=== PATIENT | male | born 1975 ===

== ENCOUNTER 2019-01-20 18:00 | Inpatient (IN) ==
[2019-01-20] MEDS ORDERED: DEXTROSE 50% 25 GM/50 ML VIAL IV PRN (23:23)
[2019-01-20] MEDS ORDERED: ACETAMINOPHEN 325 MG TABLET PO PRN (23:23)
[2019-01-20] MEDS ORDERED: DOCUSATE SODIUM 100 MG CAPSULE PO PRN (23:23)
[2019-01-20] MEDS ORDERED: ONDANSETRON 4 MG/2 ML VIAL IV PRN (23:23)
[2019-01-20] MEDS ORDERED: GLUCAGON 1 MG VIAL IM PRN (23:23)
[2019-01-20] MEDS ORDERED: MAGNESIUM SULF RIDER 4 GM in PREMIX 1 EACH IV PRN (23:23)
[2019-01-20] MEDS ORDERED: MAGNESIUM SULF RIDER 2 GM in PREMIX 1 EACH IV PRN (23:23)
[2019-01-21] MEDS: INSULIN LISPRO 100 UNIT/ML SUBCUT SCH ×5 (01:12→21:14)
[2019-01-21 05:32] LABS: Basophils % 0.3 % (0.0-0.8); Eosinophils # 0.6 10*3/uL (0.0-0.87); Eosinophils % 9.1 % (0.00-10.9); Hematocrit 20.6 VOL% (42.0-52.0); Hemoglobin 6.8 GM/DL (14.0-18.0); Immature Granulocytes % 0.6 %; Immature Granulocytes Absolute 0.04 #; Lymphocytes # 1.4 10*3/uL (1.4-4.0); Lymphocytes % 21.3 % (21.2-54.2); Mean Corpuscular Volume 93.2 FL (87-102); Mean Platelet Volume 11.6 FL (9.6-12.0); Monocytes % 8.1 % (1.7-12.7); Neutrophils % 60.6 % (38.7-73.9); Platelet Count 137 T/CUMM (130-400); Red Blood Count 2.21 MC/CUMM (3.8-5.5); Red Cell Distribution Width 14.9 % (9.3-17.3); White Blood Count 6.6 T/CUMM (4-12)
[2019-01-21 06:16] LABS: Bilirubin,Total 0.4 MG/DL (0.2-1.0); Calcium 7.3 MG/DL (8.5-10.1); Osmolality,Calculated 298.4 MOS/KG (273-304); Risk Ratio 3.28; Thyroid Stimulating Hormone 5.59 uIU/ml (0.358-3.74); Total Protein 5.4 G/DL (6.4-8.3); VLDL CHOLESTEROL 19.4 MG/DL
[2019-01-21 06:17] LABS: Hematocrit 21.2 VOL% (42.0-52.0); Hemoglobin 7.1 GM/DL (14.0-18.0)
[2019-01-21] MEDS: POTASSIUM CHLORIDE 20 MEQ TABLET PO PRN ×5 (06:50→14:54)
[2019-01-21 09:00] LABS: CKMB % 1.4 %
[2019-01-21 09:01] LABS: Troponin I 0.329 NG/ML (0.00-0.045)
[2019-01-21] MEDS: ASPIRIN EC 325 MG TABLET PO SCH (09:18)
[2019-01-21] MEDS: CLOPIDOGREL 75 MG TABLET PO SCH (09:18)
[2019-01-21] MEDS: LOSARTAN 50 MG TABLET PO SCH (09:18)
[2019-01-21] MEDS: ATORVASTATIN 40 MG TABLET PO SCH (09:18)
[2019-01-21] MEDS: POTASSIUM CHLORIDE 10 MEQ TABLET PO SCH (09:18)
[2019-01-21] MEDS: FUROSEMIDE 40 MG/4 ML VIAL IV SCH ×2 (09:18→17:11)
[2019-01-21] MEDS ORDERED: SODIUM CHLORIDE 0.9% 1,000 ML IV PRN (10:06)
[2019-01-21] MEDS ORDERED: FUROSEMIDE 40 MG/4 ML VIAL IV ONE (10:08)
[2019-01-21 12:08] LABS: CKMB % 1.3 %
[2019-01-21 12:10] LABS: Troponin I 0.397 NG/ML (0.00-0.045)
[2019-01-21 15:53] LABS: CKMB % 1.3 %
[2019-01-21 15:55] LABS: Troponin I 0.441 NG/ML (0.00-0.045)
[2019-01-21 15:58] LABS: % Iron Saturation 23.6 % (18-50)
[2019-01-21] MEDS ORDERED: POTASSIUM CHLORIDE 10 MEQ TABLET PO ONE (16:24)
[2019-01-21 18:04] LABS: Apearance,Urine CLEAR (Clear); Bacteria,Urine Moderate /HPF (Few); Bilirubin,Urine Negative (Negative); Blood, Urine Small mg/dL (Negative); Glucose,Urine (UA) 50 mg/dL (Negative); Hyaline Casts,Urine 3 /LPF (0-3); Ketones,Urine Negative (Negative); Mucus,Urine Occasional /LPF (Occasional); Nitrite,Urine Negative (Negative); Protein,Urine >=500 MG/DL; RBC,Urine 2 /HPF (0-4); Squamous Epithelial Cell,Urine Occasional /HPF (0-10); Urine Color Yellow (Yellow); Urine Urobilinogen < 2.0 EU/DL (0.2-1.0); WBC,Urine 4 /HPF (0-6)
[2019-01-21 18:56] LABS: Hematocrit 27.7 VOL% (42.0-52.0); Hemoglobin 9.2 GM/DL (14.0-18.0)
[2019-01-22 05:13] LABS: Basophils % 0.4 % (0.0-0.8); Eosinophils # 0.6 10*3/uL (0.0-0.87); Eosinophils % 8.3 % (0.00-10.9); Hematocrit 24.5 VOL% (42.0-52.0); Hemoglobin 8.1 GM/DL (14.0-18.0); Immature Granulocytes % 0.4 %; Immature Granulocytes Absolute 0.03 #; Lymphocytes # 1.4 10*3/uL (1.4-4.0); Lymphocytes % 19.8 % (21.2-54.2); Mean Corpuscular HGB Conc 33.1 GM/DL (32-36); Mean Corpuscular Volume 94.2 FL (87-102); Mean Platelet Volume 10.8 FL (9.6-12.0); Neutrophils % 63.1 % (38.7-73.9); Platelet Count 146 T/CUMM (130-400); Red Cell Distribution Width 14.8 % (9.3-17.3); White Blood Count 6.9 T/CUMM (4-12)
[2019-01-22 05:26] LABS: Calcium 7.4 MG/DL (8.5-10.1); Osmolality,Calculated 299.6 MOS/KG (273-304)
[2019-01-22] MEDS: POTASSIUM CHLORIDE 20 MEQ TABLET PO PRN (06:29)
[2019-01-22] MEDS: INSULIN LISPRO 100 UNIT/ML SUBCUT SCH ×4 (08:28→22:02)
[2019-01-22] MEDS: LOSARTAN 50 MG TABLET PO SCH (09:27)
[2019-01-22] MEDS: ATORVASTATIN 40 MG TABLET PO SCH (09:27)
[2019-01-22] MEDS: POTASSIUM CHLORIDE 10 MEQ TABLET PO SCH (09:27)
[2019-01-22] MEDS: ASPIRIN EC 325 MG TABLET PO SCH (09:27)
[2019-01-22] MEDS: CLOPIDOGREL 75 MG TABLET PO SCH (09:27)
[2019-01-22] MEDS: FUROSEMIDE 40 MG/4 ML VIAL IV SCH (09:44)
[2019-01-22] MEDS: FUROSEMIDE 100 MG/10 ML VIAL IV SCH ×2 (10:35→16:31)
[2019-01-22] MEDS: CARVEDILOL 6.25 MG TABLET PO SCH ×2 (10:36→16:32)
[2019-01-23 04:56] LABS: Basophils % 0.6 % (0.0-0.8); Eosinophils # 0.7 10*3/uL (0.0-0.87); Eosinophils % 9.8 % (0.00-10.9); Hematocrit 28.5 VOL% (42.0-52.0); Hemoglobin 9.3 GM/DL (14.0-18.0); Immature Granulocytes % 0.4 %; Immature Granulocytes Absolute 0.03 #; Lymphocytes # 1.4 10*3/uL (1.4-4.0); Mean Corpuscular HGB Conc 32.6 GM/DL (32-36); Mean Corpuscular Volume 94.1 FL (87-102); Mean Platelet Volume 11.3 FL (9.6-12.0); Monocytes % 6.9 % (1.7-12.7); Neutrophils % 62.3 % (38.7-73.9); Platelet Count 158 T/CUMM (130-400); Red Blood Count 3.03 MC/CUMM (3.8-5.5); Red Cell Distribution Width 14.6 % (9.3-17.3); White Blood Count 7.1 T/CUMM (4-12)
[2019-01-23 05:19] LABS: Calcium 7.9 MG/DL (8.5-10.1); Osmolality,Calculated 298.7 MOS/KG (273-304)
[2019-01-23] MEDS: POTASSIUM CHLORIDE 20 MEQ TABLET PO PRN (06:41)
[2019-01-23] MEDS: FUROSEMIDE 100 MG/10 ML VIAL IV SCH (08:32)
[2019-01-23] MEDS: INSULIN LISPRO 100 UNIT/ML SUBCUT SCH ×2 (08:48→13:27)
[2019-01-23] MEDS: ATORVASTATIN 40 MG TABLET PO SCH (08:50)
[2019-01-23] MEDS: POTASSIUM CHLORIDE 10 MEQ TABLET PO SCH (08:50)
[2019-01-23] MEDS: CLOPIDOGREL 75 MG TABLET PO SCH (08:51)
[2019-01-23] MEDS: LOSARTAN 50 MG TABLET PO SCH (08:51)
[2019-01-23] MEDS: ASPIRIN EC 325 MG TABLET PO SCH (08:51)
[2019-01-23] MEDS: CARVEDILOL 6.25 MG TABLET PO SCH (08:51)
[2019-01-23 13:08] VITALS: BP 131/81
== END 2019-01-23 14:30 | disposition home or self-care (01) | DRG 291 ==
LOC: EDBD → SUATTDRO 20:57 → N.TELES 20:57 → INTOOBSV 20:57
PROVIDERS: ADMIT Internal Medicine; ATTEND Internal Medicine

== ENCOUNTER 2019-09-22 14:42 | Inpatient (IN) ==
[2019-09-22] MEDS ORDERED: hydrALAZINE 20 MG/1 ML VIAL IV PRN (19:01)
[2019-09-22] MEDS ORDERED: SODIUM CHLORIDE 0.9% 1,000 ML IV PRN ×2 (19:01→20:54)
[2019-09-22] MEDS ORDERED: ONDANSETRON 4 MG/2 ML VIAL IV PRN (19:01)
[2019-09-22] MEDS ORDERED: ZALEPLON 5 MG CAPSULE PO PRN (19:01)
[2019-09-22] MEDS ORDERED: GLUCAGON 1 MG VIAL IM PRN (19:01)
[2019-09-22] MEDS ORDERED: DEXTROSE 50% 25 GM/50 ML VIAL IV PRN (19:01)
[2019-09-22] MEDS ORDERED: DEXTROSE 10% 250 ML BAG IV PRN (19:01)
[2019-09-22] MEDS ORDERED: ACETAMINOPHEN 325 MG TABLET PO PRN (19:01)
[2019-09-22] MEDS ORDERED: INFLUENZA VIRUS VACCINE 0.5 ML SYRINGE IM ONE (19:14)
[2019-09-22] MEDS ORDERED: cloNIDine 0.1 MG TABLET PO PRN (19:17)
[2019-09-22 22:04] LABS: % Iron Saturation 22.4 % (18-50)
[2019-09-22] MEDS: SODIUM CHLORIDE 0.45% 1,000 ML IV SCH (22:24)
[2019-09-22] MEDS: FUROSEMIDE 40 MG/4 ML VIAL IV SCH (22:27)
[2019-09-22] MEDS: INSULIN REGULAR 100 UNIT/ML SUBCUT SCH (22:28)
[2019-09-22 23:02] LABS: Hepatitis B Surface Ag Quant < 0.10 Index; Hepatitis B Surface Ag Result Negative (Negative); Hepatitis C Virus Ab Quant 0.05 Index; Hepatitis C Virus Ab Result Negative (Negative)
[2019-09-23 00:36] LABS: Hematocrit 18.5 VOL% (42.0-52.0)
[2019-09-23 00:37] LABS: Hemoglobin 5.8 GM/DL (14.0-18.0)
[2019-09-23] MEDS: FUROSEMIDE 40 MG/4 ML VIAL IV SCH ×4 (03:45→21:33)
[2019-09-23 05:36] LABS: Basophils % 0.7 % (0.0-0.8); Eosinophils # 0.2 10*3/uL (0.0-0.87); Eosinophils % 3.3 % (0.00-10.9); Hematocrit 23.5 VOL% (42.0-52.0); Hemoglobin 7.8 GM/DL (14.0-18.0); Immature Granulocytes % 0.2 %; Immature Granulocytes Absolute 0.01 #; Lymphocytes # 1.7 10*3/uL (1.4-4.0); Lymphocytes % 28.9 % (21.2-54.2); Mean Corpuscular HGB Conc 33.2 GM/DL (32-36); Mean Corpuscular Volume 92.2 FL (87-102); Mean Platelet Volume 10.9 FL (9.6-12.0); Monocytes % 8.7 % (1.7-12.7); Neutrophils % 58.2 % (38.7-73.9); Platelet Count 146 T/CUMM (130-400); Red Blood Count 2.55 MC/CUMM (3.8-5.5); Red Cell Distribution Width 13.3 % (9.3-17.3)
[2019-09-23 06:01] LABS: Calcium 7.4 MG/DL (8.5-10.1); Osmolality,Calculated 304.1 MOS/KG (273-304)
[2019-09-23 08:45] LABS: Hematocrit 26.2 VOL% (42.0-52.0); Hemoglobin 8.5 GM/DL (14.0-18.0)
[2019-09-23] MEDS: INSULIN REGULAR 100 UNIT/ML SUBCUT SCH ×4 (10:16→21:34)
[2019-09-23] MEDS: PANTOPRAZOLE 40 MG TABLET PO SCH (10:23)
[2019-09-23] MEDS: CLOPIDOGREL 75 MG TABLET PO SCH (10:24)
[2019-09-23] MEDS: FERROUS SULFATE 325 MG TABLET PO SCH ×2 (10:24→21:33)
[2019-09-23] MEDS: ATORVASTATIN 40 MG TABLET PO SCH (10:24)
[2019-09-23] MEDS: ASPIRIN EC 325 MG TABLET PO SCH (10:24)
[2019-09-23] MEDS: carvediloL 6.25 MG TABLET PO SCH ×2 (10:24→19:13)
[2019-09-23] MEDS ORDERED: SODIUM CHLORIDE 0.9% 1,000 ML IV PRN (11:03)
[2019-09-24] MEDS: FUROSEMIDE 40 MG/4 ML VIAL IV SCH ×2 (02:55→08:54)
[2019-09-24] MEDS: SODIUM CHLORIDE 0.45% 1,000 ML IV SCH (04:48)
[2019-09-24 06:38] LABS: Risk Ratio 3.1; VLDL CHOLESTEROL 19.6 MG/DL
[2019-09-24 06:39] LABS: Troponin I 0.294 NG/ML (0.00-0.045)
[2019-09-24] MEDS: INSULIN REGULAR 100 UNIT/ML SUBCUT SCH (08:41)
[2019-09-24] MEDS: ASPIRIN EC 325 MG TABLET PO SCH (08:50)
[2019-09-24] MEDS: CLOPIDOGREL 75 MG TABLET PO SCH (08:51)
[2019-09-24] MEDS: PANTOPRAZOLE 40 MG TABLET PO SCH (08:51)
[2019-09-24] MEDS: carvediloL 6.25 MG TABLET PO SCH (08:51)
[2019-09-24] MEDS: FERROUS SULFATE 325 MG TABLET PO SCH (08:51)
[2019-09-24] MEDS: ATORVASTATIN 40 MG TABLET PO SCH (08:51)
[2019-09-24 12:53] VITALS: BP 134/74
== END 2019-09-24 13:10 | disposition home or self-care (01) | DRG 699 ==
LOC: N.2W → OBSVTOIN 17:55
PROVIDERS: ADMIT Internal Medicine; ATTEND Internal Medicine